=== PATIENT | female | born 1985 | race African-American/Black ===

== ENCOUNTER 2017-03-08 22:41 | Emergency (ER) | payer MEDICAID ==
[~2017-03-08] VITALS: Ht 165.1 cm; Wt 82.0 kg
[2017-03-09 00:28] VITALS: BP 121/66
== END 2017-03-09 03:28 | disposition home or self-care (01) ==
LOC: ER 22:41
DX: S46.911A Strain of unspecified muscle, fascia and tendon at shoulder and upper arm level, right arm, initial encounter (principal); F12.10 Cannabis abuse, uncomplicated; R20.0 Anesthesia of skin; X50.9XXA Other and unspecified overexertion or strenuous movements or postures, initial encounter; Y93.89 Activity, other specified; Y99.8 Other external cause status; Y92.89 Other specified places as the place of occurrence of the external cause
CPT/HCPCS: 73030; 73090; 73110; 81025; 99284